=== PATIENT | female | born 1960 | race Caucasian/White ===

== ENCOUNTER 2018-11-25 08:13 | Outpatient (CLI) | payer BC, SELFPAY ==
[2018-11-25 09:40] LABS: BUN 14 mg/dL (7-18); CREATININE 0.98 mg/dL (0.55-1.02); Calcium 9.3 mg/dL (8.5-10.1); Calculated LDL 77 mg/dL; Chloride 108 mmol/L (98-107); Cholesterol 169 mg/dL (50-200); Estimated GFR 57.89 (mL/min/1.73m2); Glucose 95 mg/dL (70-100); HDL Cholesterol 41 mg/dL (40-60); Potassium 4.1 mmol/L (3.5-5.1); Sodium 145 mmol/L (136-145); Triglyceride 258 mg/dL (30-150)
== END 2018-11-25 08:33 ==
PROVIDERS: PCP Internal Medicine; Visit Provider Internal Medicine
DX: I10 Essential (primary) hypertension; R73.01 Impaired fasting glucose; E78.00 Pure hypercholesterolemia, unspecified
CPT/HCPCS: 36415; 80048; 80061; 83721

== ENCOUNTER 2020-03-01 02:46 | Outpatient (CLI) | payer BC, SELFPAY ==
[2020-03-01 09:55] LABS: Anion Gap 6.7 mmol/L (3-11); BUN 17 mg/dL (7-18); CO2 29.3 mmol/L (21.0-32.0); CREATININE 1.13 mg/dL (0.55-1.02); Calcium 9.3 mg/dL (8.5-10.1); Calculated LDL 88 mg/dL (<100); Chloride 107 mmol/L (98-107); Cholesterol 199 mg/dL (<200); Estimated GFR 48.95 (mL/min/1.73m2); Glucose 102 mg/dL (74-106); HDL Cholesterol 45 mg/dL (40-60); Potassium 4.4 mmol/L (3.5-5.1); Sodium 143 mmol/L (136-145); Triglyceride 332 mg/dL (<150)
== END 2020-03-01 03:06 ==
PROVIDERS: PCP Internal Medicine; Visit Provider Internal Medicine
DX: E78.00 Pure hypercholesterolemia, unspecified (principal); I10 Essential (primary) hypertension
CPT/HCPCS: 36415; 80048; 80061

== ENCOUNTER 2020-03-29 01:53 | Outpatient (CLI) | payer BC, SELFPAY ==
[2020-03-29 08:45] LABS: Bilirubin Negative (Negative); Blood Moderate (Negative); Clarity Clear (Clear); Glucose Negative (Negative); Ketones Negative (Negative); Leukocyte Esterase Negative (Negative); Nitrite Negative (Negative); Specific Gravity >= 1.030 (1.005-1.025); Urobilinogen 0.2 EU/dL (Up TO 0.2)
[2020-03-29 09:31] LABS: Anion Gap 8.1 mmol/L (3-11); BUN 20 mg/dL (7-18); CO2 28.9 mmol/L (21.0-32.0); CREATININE 1.15 mg/dL (0.55-1.02); Calcium 9.3 mg/dL (8.5-10.1); Chloride 106 mmol/L (98-107); Estimated GFR 47.97 (mL/min/1.73m2); Glucose 103 mg/dL (74-106); Potassium 4.3 mmol/L (3.5-5.1); Sodium 143 mmol/L (136-145)
[2020-03-29 10:13] LABS: Bacteria Moderate HPF (Negative); C & S Indicated? No/Sq. Contamination; Casts Negative LPF (Negative); Crystals Negative HPF (Negative); Epithelial Cells Many HPF (Negative); Mucus Heavy (Negative); RBC >50 HPF (0-2)
== END 2020-03-29 02:13 ==
PROVIDERS: PCP Internal Medicine; Visit Provider Internal Medicine
DX: N18.9 Chronic kidney disease, unspecified (principal); R82.998 Other abnormal findings in urine
CPT/HCPCS: 36415; 80048; 81003; 81015

== ENCOUNTER 2020-04-22 00:48 | Outpatient (CLI) | payer BC, SELFPAY ==
--- NOTE | 2020-04-22 15:19 | DI.MAMMO_ITS ---
EXAM: MG MAMMO SCREENING CLINICAL HISTORY: screening,Z12.39. TECHNIQUE: Bilateral full field digital CC and MLO mammographic images were obtained with 3D tomosyn thesis and utilizing computer aided detection (CAD). COMPARISON: Prior mammograms dating back to 2010, the most recent being February 2017. Patient unde rwent bilateral breast reduction surgery in 2018 FINDINGS: There is some architectural distortion now evident from the interval reduction surgery. In the right breast there is a nodular density located posteriorly measuring 3 x 3 millimeters, locat ed 9 centimetres in from the nipple. Spot compression view recommended. In the left breast there are 2 new microcalcification groups. One is located posteriorly up against the chest wall and the other approximately 7 centimetres in from the nipple. Spot Mag views recommen ded. No new significant skin thickening. IMPRESSION: Compared to 2017 there has been interval bilateral reduction surgery. There are new microcalcificati ons in the left breast which may or may not be related to fat necrosis or more concerning pathology a nd there is also a small nodular density noted posteriorly in the opposite-right breast. Additional Mag views of the left breast recommended as well as additional spot compression view of the right nicole ast and possibly right breast ultrasound BI-RADS Category 0 - Assessment Incomplete: Need additional imaging evaluation Breast Density - Category B - Scattered areas of fibroglandular density Breast density Category C or D implies that the patient has dense breast tissue. Dense breast tissue can make it harder to find cancer on a mammogram. Dense breast tissue is also associated with an incr eased risk of breast cancer. This information about the result of the mammogram report was provided to the patient to raise their awareness. Use this report when you speak with the patient about their risks for breast cancer, which includes their family history. At that time, you may recommend additional screening tests (Ultrasoun d or MRI) as these tests may add significant information. A negative radiographic report should not delay biopsy if a dominant or clinically suspicious mass is present. Up to ten percent of cancers are not identified on mammography. A negative report may reinforce clinical impression. Adenosis and dense breasts may obscure an underlying neoplasm. False positive reports average 6 to 10%. Patient will receive a letter notifying them of these results.
== END 2020-04-22 01:08 ==
PROVIDERS: PCP Internal Medicine; Visit Provider Internal Medicine
DX: Z12.31 Encounter for screening mammogram for malignant neoplasm of breast (principal); R92.8 Other abnormal and inconclusive findings on diagnostic imaging of breast
CPT/HCPCS: 77063; 77067

== ENCOUNTER 2020-05-04 00:49 | Outpatient (CLI) | payer BC, SELFPAY ==
--- NOTE | 2020-05-04 | DI.US_ITS ---
EXAM: MG MAMMO SCREEN CALL BACK BI and bilateral U/S breast limited CLINICAL HISTORY: F/U MAMMO, RT BREAST NODULAR DENSITY, NEW LT MICROCALCIFICATIONS. TECHNIQUE: Craniocaudal and mediolateral oblique Full Field Digital Mammography views of the bilater al breast with Computer Aided Diagnosis followed by Tomosynthesis and bilateral breast ultrasound. COMPARISON: Comparison is made with prior examinations. FINDINGS: Mammography/Tomosynthesis: Since the prior mammogram of 2017 the patient has undergone a bilateral br east reduction. Masses/Architectural Distortion: None seen. The nodular density in the outer right breast does not pe rsist on the additional views. Microcalcifictions: No suspicious pleomorphic-type are seen. The grouping of calcifications is again seen in the outer left breast. No definite suspicious pleomorphism is identified. Skin Thickening/Nipple Retraction: None. Bilateral breast US: Echotexture: Normal appearance of the glandular tissue. Shadowing: No suspicious foci. Cyst: None. Solid lesions: None seen. Ductal dilation: None. IMPRESSION: 1. No definite evidence of malignancy is noted. 2. A six-month follow-up bilateral mammogram is recommended for re-evaluation. 3. The findings were discussed with the patient on the date of the examination. BI-RADS Category 3 - 6 month - Probably Benign Finding: Recommend follow-up mammography in 6 months Breast Density - Category B - Scattered areas of fibroglandular density A negative radiographic report should not delay biopsy if a dominant or clinically suspicious mass is present. Up to ten percent of cancers are not identified on mammography. A negative report may reinforce clinical impression. Adenosis and dense breasts may obscure an underlying neoplasm. False positive reports average 6 to 10%. Patient will receive a letter notifying them of these results.
== END 2020-05-04 01:09 ==
PROVIDERS: PCP Internal Medicine; Visit Provider Internal Medicine
DX: R92.0 Mammographic microcalcification found on diagnostic imaging of breast (principal); R92.2 Inconclusive mammogram
CPT/HCPCS: 76642; 77063; 77067

== ENCOUNTER 2020-06-25 08:09 | Day surgery (SDC) | payer BC, SELFPAY ==
[2020-06-25] MEDS: Lactated Ringers 1,000 ML 80 ML IV (08:44)
[2020-06-25 08:45] VITALS: BP 116/66; PULSE 57; RESP 16; TEMP 35.8; O2SAT 98
--- NOTE | 2020-06-25 09:18 | BOWEL_PTH ---
PATIENT: Radha Wilkins LOC: [facility] U#:[id number] AGE/SX: 59/F ROOM: RE06/25/[address]: Salima Crabtree : 1960 BED: DIS: 06/25/2020 SPEC #: [id number] RECD: 06/25/20 12:31 STATUS: [facility] REQ #: [id number] ESTRELLITA: 06/25/20 09:[address]: Salima Crabtree DEPT: Surgical Specimen RECD BY: Lisa Vo ENTERED: 06/25/20 12:33 SP TYPE: Bowel OTHR DR: Ivy Ruffin MD Tissues: 1 - BIOPSY BOWEL Procedures: GROSS AND MICRO LEVEL 4 Comments: [id number]
--- NOTE | 2020-06-25 09:43 | W.COLOREPORT ---
Date of service: 06/25/20 Time of Service: 09:43 Colonoscopy Report Date of procedure: 06/25/20 Pre-op diagnosis general: screening Post-op diagnosis procedure note: other (polypectomy- hot snare ) Anesthesia proc note operative: GETA Pathology: other Disposition: no change Prep: Miralax/Dulcolax Retraction Time: 15 mins Procedure Description: After informed consent was obtained the patient was taken to the procedure room and placed in a left decubitous position. Monitors were applied and a time out was done. The patients name, date of , procedure, allergies to medications and metal in their body was reviewed. The patient was then sedated. Once sedated and comfortable a rectal exam was done. External hemorrhoids that are not inflamed. Internal exam revealed a normal sphincter tone and no palpable masses. The scope was then introduced and retrofelexed. no internal hemorrhoids were identified. The scope was then advanced to the cecum w/out difficulty. The TI and appendiceal orifice were identified. The prep was good. The scope was then slowly retracted over 15 minutes back into the rectum. She had a large pedunculated polyp at 80 cm. This is at least 1.5 cm. It is removed in a hot snare in 1 piece. It is retrieved. There is no bleeding noted. There are no other polyps diverticula or AVMs throughout the colon. The scope was removed and the patient was woken up and taken back to Same day surgery in stable condition. The patient tolerated the procedure well and there were no immediate complications. Follow up: The patient should follow up in 3 years unless they develop changes in bowel habits or other new gastrointestinal complaints.
--- NOTE | 2020-06-25 09:46 | W.PM.DSUDISC ---
Discharge Plan Disposition Patient Disposition: HOME Condition: Good Discharge Details Attending Provider: Salima Crabtree Primary Care Provider: Ivy Ruffin Home Meds and New Rx's Prescriptions: No Action cholecalciferol (vitamin D3) 5,000 unit capsule 5,000 unit PO DAILY RF: 0 atenolol 25 mg tablet 25 mg PO DAILY Qty: 90 RF: 3 atorvastatin 20 mg tablet 20 mg PO DAILY Qty: 90 RF: 3 bupropion HCl (smoking deter) 150 mg tablet extended release 12 hr 150 mg PO DAILY Qty: 90 RF: 3 acetaminophen 325 MG tablet 650 mg PO Q4H PRN RF: 0 calcium carbonate-vitamin D3 [Calcium 500 With D] 1 EACH tablet 1 ea PO HS RF: 0 multivitamin [Daily Multi-Vitamin] 1 EACH tablet 1 ea PO DAILY Qty: 365 RF: 0 Discharge Instructions Additional Instructions: Findings: Lg polyp -No ASA/NSAID's for 5 days. -no strenuous activity or lifting over 20#'s for 72 hrs. Follow up: repeat in 3 yrs Please call if you develop: fevers >101.5 Nausea or Vomiting Abdominal pain that is not transient DAY SURGERY UNIT POST COLONOSCOPY INSTRUCTIONS 1. Because there will be medication in your system for the next 24 hours, you may feel a little sleepy. Your coordination will be affected. Therefore: a. Do not drive or operate dangerous equipment for 24 hours. b. Do not drink alcohol beverages for 24 hours (not even beer). c. Plan to go home and rest for the day. 2. Generally there are no restrictions on your activity after a day or so has gone by, but you may feel a bit fatigued for a few days. 3 After you arrive home you may have a light meal and return to a normal diet as you can tolerate it without feeling sick to your stomach. 4. After surgery, you may feel pain or discomfort. This should be only transient, but if it persists please contact your doctor. 5. If there are any questions regarding the findings of your procedure, please feel free to contact your doctor. 6. If you are unable to contact your doctor with a problem, contact the hospital at [phone]. 7. Continue all your regular medications unless directed otherwise. I understand the above instructions and have no questions. Signature of Patient or Responsible Adult Escort Date/Time Name of Responsible Adult Escort Signature of Nurse Date/Time Activity:: No lifting over 20 pounds or strenuous activity x72 hours. Diet:: Small light meals x24 hours. Discharge Orders Discharge Orders: Discharge Order (Routine); Ordered 06/24/20 Ordered By: Salima Crabtree DS: Diagnosis Discharge Diagnosis (1) Adenomatous colon polyp: Status: Acute
[2020-06-25 10:02] VITALS: BP 111/73; PULSE 51; RESP 16; TEMP 36.4; O2SAT 98
[2020-06-25 10:20] VITALS: BP 126/86; PULSE 55; RESP 16; TEMP 36.1; O2SAT 98
== END 2020-06-25 10:53 | disposition home or self-care (01) ==
PROVIDERS: PCP Internal Medicine; Visit Provider Surgery
PROC: 0DJD8ZZ Inspection of Lower Intestinal Tract, Via Natural or Artificial Opening Endoscopic (ICD-10-PCS; CPT 45378; principal; 2020-06-25 09:00)
DX: Z12.11 Encounter for screening for malignant neoplasm of colon (principal); D12.4 Benign neoplasm of descending colon
CPT/HCPCS: 45385; 88305

== ENCOUNTER 2020-11-04 01:16 | Outpatient (CLI) | payer BC, SELFPAY ==
--- NOTE | 2020-11-04 07:30 | DI.MAMMO_ITS ---
Exam(s) MAMMO DIAGNOSTIC BI EXAM: MAMMO DIAGNOSTIC BI CLINICAL HISTORY: 6 MONTH FOLLOW UP, DIAGNOSTIC, Z98.890,H/O REDUCTION MAMMOPLASTY. TECHNIQUE: Unilateral spot mammographic images were obtained with 3D Tomosynthesistechnique and util izing computer aided detection (CAD). COMPARISON: Prior mammograms dating back to 2011, the most recent being April 2020. This patient underwent previous bilateral reduction surgery FINDINGS: No new significant radiograph findings in the right breast. In the left breast the more anterior of the 2 microcalcification groups has almost completely disappe ared. The more posterior microcalcification group up again to chest wall is unchanged. There are no new spiculated masses. No new architectural distortion nor skin thickening-retraction. IMPRESSION: Stable benign findings. No radiographic evidence of malignancy. Appropriate follow-up is to keep this patient yearly mammogram schedule, this implying the next [facility] mammogram would be in April 2021, with earlier imaging if a self detected breast changes noted .. The patient was informed of the findings and follow-up recommendations prior to leaving the [facility] today. BI-RADS Category 2 - Benign Findings Breast Density - Category B - Scattered areas of fibroglandular density Breast density Category C or D implies that the patient has dense breast tissue. Dense breast tissue can make it harder to find cancer on a mammogram. Dense breast tissue is also associated with an incr eased risk of breast cancer. This information about the result of the mammogram report was provided to the patient to raise their awareness. Use this report when you speak with the patient about their risks for breast cancer, which includes their family history. At that time, you may recommend additional screening tests (Ultrasoun d or MRI) as these tests may add significant information. A negative radiographic report should not delay biopsy if a dominant or clinically suspicious mass is present. Up to ten percent of cancers are not identified on mammography. A negative report may reinforce clinical impression. Adenosis and dense breasts may obscure an underlying neoplasm. False positive reports average 6 to 10%. Patient will receive a letter notifying them of these results.
== END 2020-11-04 01:36 ==
PROVIDERS: PCP Internal Medicine; Visit Provider Internal Medicine
DX: R92.8 Other abnormal and inconclusive findings on diagnostic imaging of breast (principal); Z98.890 Other specified postprocedural states
CPT/HCPCS: 77062; 77066; G0279

== ENCOUNTER 2021-02-16 20:15 | Outpatient (REF) | payer BC, SELFPAY ==
[2021-02-16 21:07] LABS: Anion Gap 8.4 mmol/L (3-11); BUN 20 mg/dL (7-18); CO2 29.6 mmol/L (21.0-32.0); Calcium 9.6 mg/dL (8.5-10.1); Calculated LDL 95 mg/dL (<100); Chloride 105 mmol/L (98-107); Cholesterol 175 mg/dL (<200); Estimated GFR 56.18 (mL/min/1.73m2); Glucose 105 mg/dL (74-106); HDL Cholesterol 45 mg/dL (40-60); Potassium 4.7 mmol/L (3.5-5.1); Sodium 143 mmol/L (136-145); Triglyceride 178 mg/dL (<150)
== END 2021-02-16 20:16 | disposition home or self-care (01) ==
LOC: LBN 20:15
PROVIDERS: PCP Internal Medicine; Visit Provider Internal Medicine
DX: I10 Essential (primary) hypertension (principal); E78.00 Pure hypercholesterolemia, unspecified
CPT/HCPCS: 80048; 80061

== ENCOUNTER 2021-10-11 11:24 | Day surgery (SDC) | payer BC, SELFPAY ==
--- NOTE | 2021-10-10 15:40 | PDOC.DSDIS_ITS ---
Discharge Plan Disposition Patient Disposition: HOME Condition: Good Discharge Details Reason For Visit: Colon scope Attending Provider: Salima Crabtree Primary Care Provider: Ivy Ruffin Home Meds and New Rx's Prescriptions: Continued cholecalciferol (vitamin D3) 5,000 unit capsule 5,000 unit PO DAILY bupropion HCl 150 mg tablet extended release 24 hr 150 mg PO QAM Qty: 90 3RF acetaminophen 325 MG tablet 650 mg PO Q4H PRN Label Comments: from [facility] [place] calcium carbonate-vitamin D3 [Calcium 500 With D] 1 EACH tablet 1 ea PO HS Label Comments: takes at night multivitamin [Daily Multi-Vitamin] 1 EACH tablet 1 ea PO DAILY Qty: 365 Label Comments: Since not feeling well has not taken -- it's been about a week. atenolol 25 mg tablet 25 mg PO DAILY Qty: 90 3RF atorvastatin 20 mg tablet 20 mg PO DAILY Qty: 90 3RF Discontinued bisacodyl [Dulcolax (bisacodyl)] 5 mg tablet,delayed release (DR/EC) 5 mg PO ONCE Qty: 4 0RF Rx Instructions: Take according to provider's instructions for colonoscopy prep. polyethylene glycol 3350 17 gram/dose powder 17 g PO ONCE Qty: 238 0RF Rx Instructions: To be taken as directed by prescriber's office for colonoscopy prep. No Action diphenhydramine-acetaminophen [Tylenol PM Extra Strength] 25-500 mg Tablet 1 tab PO QHS Discharge Instructions Additional Instructions: DSU Colonoscopy Post- Op Instructions Instructions for Everyone who is given Anesthesia: For your safety, please do the following for the next twenty-four (24) hours: *Do Not operate a motor vehicle (car, truck, motorcycle, etc.) *Do Not drink alcoholic beverages or use any recreational drugs for the first 24 hours or while taking pain medications. The medications in your body may have a reaction that can be dangerous. *Do Not make any important decisions or sign any important papers. Findings: normal Follow up: 5 yrs 1. No lifting over 20 pounds or strenuous activity for the first 24 hours after your procedure. After 24 hours there are no restrictions on your activity but you may feel fatigued for a few days. 2. After you arrive home you may have a light meal and return to your normal diet as you can tolerate it without feeling sick to your stomach. 3. You may have a bloated, gaseous feeling in your belly (abdomen) after a colonoscopy. Passing gas and belching will help. Walking or lying down on your left side with your knees flexed may relieve the discomfort. Call the office at [phone] (Office) or [phone] (Hospital) right away if you notice any of the following: a.Vomiting of blood or ?coffee ground stools?. b.Rectal bleeding 1Tbsp, blood clots or continuous bleeding. c.Severe belly (abdominal) pain. d.A hard distended belly (abdomen) and an inability to pass gas. 4. Please don?t expect to have a normal BM (bowel movement) for 2-3 days after your procedure. 5. If there are questions regarding the findings of your procedure, please contact your doctor 6. If you are unable to contact your doctor with a problem, contact the hospital at [phone]. 7. Continue all your regular medications unless directed otherwise. I understand the above instructions and have no questions. Signature of Patient or Adult Escort Name of Responsible Adult Escort Signature of Nurse Date/Time Stand Alone Forms: Anesthesia Discharge Inst., Christine Graf (DSU) Activity:: See above Diet:: See above Discharge Orders Discharge Orders: Discharge Order (Routine); Ordered 10/10/21 Ordered By: Salima Crabtree
--- NOTE | 2021-10-10 15:41 | W.COLOREPORT ---
Colonoscopy Report Date of procedure: 10/11/21 Pre-op diagnosis general: Villous @ 80cm Post-op diagnosis procedure note: other (normal/repeat in 3 yrs) Surgeon: Salima Crabtree Anesthesia Type: General:No Airway Pathology: none sent Complications: None Disposition: same day Prep: Miralax/Dulcolax Retraction Time: 9 Procedure Description: After informed consent was obtained the patient was taken to the procedure room and placed in a left decubitous position. Monitors were applied and a time out was done. The patients name, date of , procedure, allergies to medications and metal in their body was reviewed. The patient was then sedated. Once sedated and comfortable a rectal exam was done. External exam was normal. Internal exam revealed a normal sphincter tone and no palpable masses. The scope was then introduced and retrofelexed. no internal hemorrhoids were identified. The scope was then advanced to the cecum without difficulty. The TI and appendiceal orifice were identified. The prep was BB PS 3 in all segments for a total of 9. The scope was then slowly retracted over 9 minutes back into the rectum. there are no polyps/AVMs/diverticula visualized today.. The scope was removed and the patient was woken up and taken back to Same day surgery in stable condition. The patient tolerated the procedure well and there were no immediate complications. Follow up: The patient should follow up in 3 years unless they develop changes in bowel habits or other new gastrointestinal complaints.
[2021-10-11 11:40] VITALS: BP 130/81; PULSE 53; RESP 18; TEMP 36.1; O2SAT 98
[2021-10-11] MEDS: Lactated Ringers 1,000 ML 80 ML IV (12:06)
--- NOTE | 2021-10-11 12:12 | ANES.PREOP_ITS ---
General Info Date of Service Date Performed: 10/11/21 Height: 5 ft 4 in Weight: 79.549 kg Body Mass Index (BMI): 30.1 Surgical Procedure: Operation Date: 10/11/21 10:50 Proposed Procedure Side Surgeon p Colonoscopy Salima Crabtree, DO Actual Procedure Side Surgeon p Colonoscopy Salima Crabtree, DO Meds Allergies and Home Medications Allergies Allergy/AdvReac Type Severity Reaction Status Date / Time No Known Drug Allergies Allergy Verified 10/11/21 11:49 Home Medication Medication Instructions Recorded acetaminophen 325 mg tablet 650 mg PO Q4H PRN 06/17/13 calcium carbonate 500 mg-vitamin 1 ea PO HS 10/01/13 D3 10 mcg (400 unit) tablet (Calcium 500 With D) multivitamin (Daily Multi-Vitamin 1 ea PO DAILY ##365 01/06/14 tablet) cholecalciferol (vitamin D3) 125 5,000 unit PO DAILY 09/25/18 mcg (5,000 unit) capsule atenolol 25 mg tablet 25 mg PO DAILY #90 tabs 10/19/20 bupropion HCl 150 mg 24 hr tablet, 150 mg PO QAM #90 tabs 08/17/21 extended release atorvastatin 20 mg tablet 20 mg PO DAILY #90 tabs 10/03/21 diphenhydramine 25 1 tab PO QHS 10/11/21 mg-acetaminophen 500 mg tablet (Tylenol PM Extra Strength) Current Visit Medications: Current Medications Generic Name Dose Route Start Last Admin Trade Name Freq PRN Reason Stop Dose Admin Hyoscyamine Sulfate 0.125 mg 10/11/21 06:00 Hyoscyamine 0.125 Mg Sl/Oral/Chew SL 10/11/21 23:59 DIRECTED PRN Ringer's Solution 1,000 mls @ 80 mls/hr 10/11/21 06:00 10/11/21 12:06 IV 11/09/21 23:59 80 mls/hr INFUSION SANKET Administration IV Miscellaneous Supplies 1 each 10/11/21 06:00 Iv Access IV 11/09/21 23:59 DIRECTED SANKET Ondansetron HCl 4 mg 10/11/21 06:00 Ondansetron 4 Mg/2 Ml Vial IVP 10/11/21 23:59 Q4H PRN PRN Nausea / Vomiting Ondansetron HCl 4 mg 10/11/21 06:00 Ondansetron 4 Mg/2 Ml Vial IVP 10/11/21 23:59 Q4H PRN PRN Nausea / Vomiting Sodium Chloride 0 ml 10/11/21 06:00 Normal Saline Flush 10 Ml Syr IV 11/09/21 23:59 PRN PRN Sodium Chloride 0 ml 10/11/21 06:00 Normal Saline 10 Ml Vial IJ 11/09/21 23:59 DIRECTED PRN Sterile Water 0 ml 10/11/21 06:00 Water,Injection,Sterile 10 Ml Vial IJ 11/09/21 23:59 DIRECTED PRN PFSH Active Problems Active Problems: Problem Status Onset Code Sessile colonic polyp K63.5 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 Adenomatous colon polyp D12.6 Irritable bowel 08/04/14 K58.9 Medical History Medical History Arthralgia of hands, bilateral Chronic kidney disease (CKD) Complex tear of lateral meniscus of left knee (02/07/21) Depressive disorder (09/06/12) Essential hypertension (03/27/12) Impaired fasting glucose (08/04/14) Microscopic hematuria (03/27/12) Patellofemoral syndrome, left (02/07/21) Plantar fasciitis of left foot Pure hypercholesterolemia (03/27/12) Seasonal affective disorder (01/21/13) Tear of medial meniscus of left knee (02/07/21) Tremor Surgical History Surgical History Appendectomy Cholecystectomy EGD - IV Sedation (01/30/02) H/O reduction mammoplasty 02/15/18 bilateral breast reduction at [facility] (Dr Glenn Dominguez) History of colonoscopy with polypectomy (~06/25/20) hysterectomy (04/16/95) Tubal Ligation, Laparoscopic Tobacco Smoking/Tobacco Use Status: Never Alcohol Alcohol Intake: current Alcohol intake frequency: holidays/special occasions only Alcohol type: wine Substance Use Substance use: Never Substance use type: does not use Vital Signs and Lab Results Vital Signs Most Recent Vital Signs in EMR: Most Recent Vital Signs Temp Pulse Resp BP Pulse Ox 36.1 C L 53 L 18 130/81 98 10/11/21 11:40 10/11/21 11:40 10/11/21 11:40 10/11/21 11:40 10/11/21 11:40 Lab Results Blood Type / Crossmatch: No Data to Display Complete Blood Count: No Data to Display Complete Metabolic Panel: No Data to Display Liver Function Panel: No Data to Display Coagulation Panel: No Data to Display Cardiac Panel: No Data to Display Arterial Blood Gas: No Data to Display Venous Blood Gas: No Data to Display Pancreas Panel: No Data to Display Thyroid Panel: No Data to Display Infectious Disease: No Data to Display Blood Cultures: No Data to Display Toxicology Panel: No Data to Display Anesthesia Assessment and Plan Anesthesia History Personal History: No History of Anesthesia Complications Family History: No Family History of Anesthesia Complications Exercise Tolerance Exercise Tolerance: Metabolic Equivalents>4 Pertinent Negatives Pertinent Negatives: No Symptoms of GERD, No Major Cardiovascular Symptoms or Complaints, No Major Pulmonary Symptoms or Complaints and No History of CVA/TIA Cardiac & Pulmonary Exam Cardiac Exam: Normal S1/S2 Heart Sounds Pulmonary Exam: Clear Bilateral Breath Sounds Implantable Cardiac Device Does patient have a Pacemaker or an ICD?: No Airway Exam Known Difficult Airway: No Mallampati Class: 1 Mouth Opening: Normal (> 3cm) Thyromental Distance: Greater than 3 cm Neck Range of Motion: Full ROM Neck Circumference: Normal Teeth Condition: Normal Dentition Airway Comments: [place] torus ASA Classification ASA Score: ASA 2 Emergency Case?: No NPO Status NPO Status: NPO Clears >2 hours, Solids >8 hours Anesthesia Plan Resuscitation Status: Full Code Anesthesia Technique: General Anesthesia Airway Planned: Natural Airway Monitors Used: Standard Monitors
[2021-10-11 12:14] VITALS: BMI 30.1
[2021-10-11 12:39] VITALS: BP 95/72; PULSE 61; RESP 20; TEMP 36.2; O2SAT 96
--- NOTE | 2021-10-11 12:42 | W.ANESPOSTOP ---
Postoperative Evaluation Date, Time and Location Date Performed: 10/11/21 Time Performed: 12:42 Patient Location: Day Surgery Unit Vital Signs Most Recent Imported Vital Signs: Most Recent Vital Signs Temp Pulse Resp BP Pulse Ox 36.1 C L 53 L 18 130/81 98 10/11/21 11:40 10/11/21 11:40 10/11/21 11:40 10/11/21 11:40 10/11/21 11:40 Most Recent Manually Entered Vital Signs: Adult Blood Pressure: 95/72 Heart Rate: 59 Respirations: 12 Oxygen Saturation (%): 96 Temperature (C): 36.3 C Pain Score (0-10 Scale): 0 Pain Score Most Recent Pain Score: Most Recent Pain Score Pain Level 0 10/11/21 11:40 Assessment Mental Status: Awake (Alert & Oriented to Patient Baseline) Airway and Respiratory Function: Patent airway with normal (patient baseline) respiratory exam Cardiovascular Function: Hemodynamically Stable Hydration Status: Adequately Hydrated Nausea & Vomiting: No Nausea or Vomiting Pain: Pt. Denies Any Pain Peripheral Nerve Block: Patient did not receive a nerve block
[2021-10-11 12:43] VITALS: BP 95/72; PULSE 59; RESP 12; TEMPC 36.3; O2SAT 96
[2021-10-11 13:07] VITALS: BP 132/91; PULSE 54; RESP 18; TEMP 36.5; O2SAT 97
== END 2021-10-11 13:25 | disposition home or self-care (01) ==
LOC: SUR 11:24
PROVIDERS: PCP Internal Medicine; Visit Provider Surgery
PROC: 0DJD8ZZ Inspection of Lower Intestinal Tract, Via Natural or Artificial Opening Endoscopic (ICD-10-PCS; CPT 45378; principal; 2021-10-11 10:45)
DX: Z12.11 Encounter for screening for malignant neoplasm of colon (principal); Z86.010 Personal history of colon polyps; I12.9 Hypertensive chronic kidney disease with stage 1 through stage 4 chronic kidney disease, or unspecified chronic kidney disease; N18.9 Chronic kidney disease, unspecified; K58.9 Irritable bowel syndrome, unspecified
CPT/HCPCS: 45378

== ENCOUNTER 2022-02-08 03:20 | Outpatient (CLI) | payer BC, SELFPAY ==
[2022-02-08 11:48] LABS: Anion Gap 4.1 mmol/L (3-11); BUN 13 mg/dL (7-18); CO2 30.9 mmol/L (21.0-32.0); CREATININE 1.1 mg/dL (0.55-1.02); Calcium 9.7 mg/dL (8.5-10.1); Calculated LDL 73 mg/dL (<100); Chloride 104 mmol/L (98-107); Cholesterol 164 mg/dL (<200); Estimated GFR 56.46 (mL/min/1.73m2); Glucose 122 mg/dL (74-106); HDL Cholesterol 53 mg/dL (40-60); Potassium 4.2 mmol/L (3.5-5.1); Sodium 139 mmol/L (136-145); Triglyceride 191 mg/dL (<150)
== END 2022-02-08 03:21 | disposition home or self-care (01) ==
LOC: LBO 03:20
PROVIDERS: PCP Internal Medicine; Visit Provider Internal Medicine
DX: E78.00 Pure hypercholesterolemia, unspecified (principal); I10 Essential (primary) hypertension
CPT/HCPCS: 36415; 80048; 80061

== ENCOUNTER 2022-08-16 02:34 | Outpatient (CLI) | payer BC, SELFPAY ==
[2022-08-16 11:09] LABS: Anion Gap 6.5 mmol/L (3-11); BUN 17 mg/dL (7-18); CO2 30.5 mmol/L (21.0-32.0); CREATININE 1.1 mg/dL (0.55-1.02); Calcium 9.5 mg/dL (8.5-10.1); Chloride 106 mmol/L (98-107); Estimated GFR 56.46 (mL/min/1.73m2); Glucose 96 mg/dL (74-106); Potassium 4.3 mmol/L (3.5-5.1); Sodium 143 mmol/L (136-145)
== END 2022-08-16 02:35 | disposition home or self-care (01) ==
PROVIDERS: PCP Nurse Practitioner Adult Health; Visit Provider Nurse Practitioner Adult Health
DX: I10 Essential (primary) hypertension (principal); R79.89 Other specified abnormal findings of blood chemistry
CPT/HCPCS: 36415; 80048

== ENCOUNTER 2022-09-20 01:00 | Outpatient (CLI) | payer BC, SELFPAY ==
--- NOTE | 2022-09-20 08:00 | DI.MAMMO_ITS ---
Exam(s) MAMMO SCREENING EXAM: MAMMO SCREENING CLINICAL HISTORY: screening, Z12.39 TECHNIQUE: Bilateral full field digital CC and MLO mammographic images were obtained with 3D tomosyn thesis and utilizing computer aided detection (CAD). COMPARISON: Available for comparison. FINDINGS: The patient is status post bilateral breast reduction. Masses/Architectural Distortion: None seen. Microcalcifications: No suspicious pleomorphic-type are seen. Skin Thickening/Nipple Retraction: None. IMPRESSION: 1. No significant interval change with no specific features of malignancy noted. 2. Unless there is more urgent need, screening mammography is recommended, as per [employer] guidelines. BI-RADS Category 1 - Negative Breast Density - Category B - Scattered areas of fibroglandular density Breast density category C or D implies that the patient has dense breast tissue. Dense breast tissue is very common and is not abnormal but dense breast tissue can make it harder to find cancer on a ma mmogram. Also, dense breast tissue may increase their breast cancer risk. This information about the result of the mammogram report was provided to the patient to raise their awareness. Use this report when you speak with the patient about their risks for breast cancer, which includes their family hist ory. At that time, you may recommend for more screening tests (Ultrasound or MRI) as they might be us eful based on their risk. A negative radiographic report should not delay biopsy if a dominant or clinically suspicious mass is present. Up to ten percent of cancers are not identified on mammography. A negative report may reinforce clinical impression. Adenosis and dense breasts may obscure an underlying neoplasm. False positive reports average 6 to 10%. Patient will receive a letter notifying them of these results.
== END 2022-09-20 01:20 ==
LOC: DI 01:43
PROVIDERS: PCP Nurse Practitioner Adult Health; Visit Provider Nurse Practitioner Adult Health
DX: Z12.31 Encounter for screening mammogram for malignant neoplasm of breast (principal)
CPT/HCPCS: 77063; 77067

== ENCOUNTER 2023-09-21 05:15 | Outpatient (CLI) | payer BC, SELFPAY ==
[2023-09-21 10:29] LABS: Hemoglobin A1C 5.7 % (<5.7)
[2023-09-21 11:34] LABS: Anion Gap 8.4 mmol/L (3-11); BUN 13 mg/dL (7-18); CO2 29.6 mmol/L (21.0-32.0); Calcium 9.8 mg/dL (8.5-10.1); Calculated LDL 139 mg/dL (<100); Chloride 106 mmol/L (98-107); Cholesterol 239 mg/dL (<200); Estimated GFR 62.52 (mL/min/1.73m2); Glucose 104 mg/dL (74-106); HDL Cholesterol 41 mg/dL (40-60); Potassium 4.3 mmol/L (3.5-5.1); Sodium 144 mmol/L (136-145); Triglyceride 297 mg/dL (<150)
== END 2023-09-21 05:16 | disposition home or self-care (01) ==
LOC: LBO 05:15
PROVIDERS: PCP Nurse Practitioner Adult Health; Visit Provider Nurse Practitioner Adult Health
DX: E78.00 Pure hypercholesterolemia, unspecified (principal); I10 Essential (primary) hypertension; R73.01 Impaired fasting glucose; N18.9 Chronic kidney disease, unspecified
CPT/HCPCS: 36415; 80048; 80061; 83036

== ENCOUNTER 2023-09-26 10:49 | Outpatient (CLI) | payer BC, SELFPAY ==
[2023-09-26 10:58] LABS: Absolute Basophil Count 0.03 10^3/uL (0.0-0.2); Absolute Eosinophil Count 0.26 10^3/uL (0.0-0.7); Absolute Lymphocyte Count 1.89 10^3/uL (1.2-3.4); Absolute Monocyte Count 0.34 10^3/uL (0.1-0.8); Absolute Neutrophil Count 2.78 10^3/uL (1.2-6.7); Basophils % 0.6 %; Eosinophils % 4.9 %; HCT 39.5 % (36.0-46.0); HGB 13.4 g/dL (11.2-15.7); Lymphocytes % 35.7 %; MCH 30.8 pg (27.0-33.0); MCHC 33.9 % (32.0-36.0); MCV 91 fL (80-95); MPV 11.5 fL (8.0-11.0); Monocytes % 6.4 %; Neutrophils % 52.4 %; Platelet Count 159 10^3/uL (130-400); RBC 4.35 10^6/uL (3.93-5.22); RDW 11.9 % (11.7-14.6); RDW-SD 39.4 fL
[2023-09-26 11:36] LABS: Amylase 45 U/L (25-115)
[2023-09-26 11:37] LABS: ALT 40 U/L (14-59); AST 26 U/L (15-37); Albumin 3.9 g/dL (3.4-5.0); Alkaline Phosphatase 89 U/L (46-116); Anion Gap 8.2 mmol/L (3-11); BUN 12 mg/dL (7-18); Bilirubin, Direct 0.3 mg/dL (0.0-0.2); Bilirubin, Total 1.9 mg/dL (0.2-1.0); CO2 28.8 mmol/L (21.0-32.0); Calcium 9.5 mg/dL (8.5-10.1); Chloride 106 mmol/L (98-107); Estimated GFR 62.52 (mL/min/1.73m2); Glucose 97 mg/dL (74-106); Lipase 36 U/L (16-77); Sodium 143 mmol/L (136-145); Total Protein 6.8 g/dL (6.4-8.2)
[2023-09-26 11:38] LABS: C-Reactive Protein < 0.50 mg/dL (<or=0.5)
== END 2023-09-26 10:50 | disposition home or self-care (01) ==
LOC: LBO 10:51
PROVIDERS: PCP Nurse Practitioner Adult Health; Visit Provider Emergency Medicine
DX: K85.90 Acute pancreatitis without necrosis or infection, unspecified (principal)
CPT/HCPCS: 36415; 80053; 80076; 83690; 82150; 85025; 86140

== ENCOUNTER 2024-02-01 02:19 | Outpatient (CLI) | payer BC, MEDICARE, SELFPAY ==
[2024-02-06 15:42] LABS: Apolipoprotein B, Serum 152 mg/dL (48-124); Beta VLDL Cholesterol Not Detected mg/dL (<15); Beta VLDL Triglycerides Not Detected mg/dL (<15); Cholesterol, Total, CDC 267 mg/dL; Chylomicron Cholesterol Not Detected; Chylomicron Triglycerides Not Detected; HDL Cholesterol, CDC 45 mg/dL (>=50); LDL Cholesterol 164 mg/dL; LDL Triglycerides 75 mg/dL (<=50); Lp(a) Cholesterol <5 mg/dL (<5); LpX Not detected; Triglycerides, CDC 311 mg/dL; VLDL Cholesterol 58 mg/dL (<30); VLDL Triglycerides 206 mg/dL (<120)
== END 2024-02-01 02:20 | disposition home or self-care (01) ==
LOC: LBO 02:19
PROVIDERS: PCP Nurse Practitioner Adult Health; Visit Provider Nurse Practitioner Adult Health
DX: E78.00 Pure hypercholesterolemia, unspecified (principal)
CPT/HCPCS: 80061; 82172; 82664

== ENCOUNTER 2024-04-29 03:58 | Outpatient (CLI) | payer BC, MEDICARE, SELFPAY ==
[2024-05-02 17:27] LABS: Apolipoprotein B, Serum 82 mg/dL (48-124); Beta VLDL Cholesterol Not Detected mg/dL (<15); Beta VLDL Triglycerides Not Detected mg/dL (<15); Cholesterol, Total, CDC 166 mg/dL; Chylomicron Cholesterol Not Detected; Chylomicron Triglycerides Not Detected; HDL Cholesterol, CDC 47 mg/dL (>=50); LDL Cholesterol 91 mg/dL; LDL Triglycerides 43 mg/dL (<=50); Lp(a) Cholesterol <5 mg/dL (<5); LpX Not detected; Triglycerides, CDC 182 mg/dL; VLDL Cholesterol 28 mg/dL (<30); VLDL Triglycerides 114 mg/dL (<120)
== END 2024-04-29 03:59 | disposition home or self-care (01) ==
LOC: LBO 03:58
PROVIDERS: PCP Nurse Practitioner Adult Health; Visit Provider Nurse Practitioner Adult Health
DX: E78.2 Mixed hyperlipidemia (principal)
CPT/HCPCS: 36415; 80061; 82172; 82664

== ENCOUNTER 2024-07-21 01:59 | Outpatient (CLI) | payer BC, MEDICARE, SELFPAY ==
--- NOTE | 2024-07-21 08:00 | DI.MAMMO_ITS ---
Exam(s) MAMMO SCREENING EXAM: MAMMO SCREENING CLINICAL HISTORY: screening,z12.39 TECHNIQUE: Mammograms were interpreted according to the usual protocol including computer analysis w [employer] CAD system, tomosynthesis and C-view imaging. COMPARISON: 2014 through 2022 FINDINGS: The breasts are composed of scattered fibroglandular densities, Breast Density category B. No suspicious masses or suspicious microcalcifications are seen. No skin thickening or abnormal axillary lymph nodes are seen. There has been no significant change from prior exams. IMPRESSION: BI-RADS Category 1, Negative mammogram Yearly screening mammography is recommended. Breast Density - Category B, scattered fibroglandular densities. A negative radiographic report should not delay biopsy if a dominant or clinically suspicious mass is present. Up to ten percent of cancers are not identified on mammography. A negative report may reinforce clinical impression. Adenosis and dense breasts may obscure an underlying neoplasm. False positive reports average 6 to 10%. Patient will receive a letter notifying them of these results.
== END 2024-07-21 02:19 ==
PROVIDERS: PCP Nurse Practitioner Adult Health; Visit Provider Nurse Practitioner Adult Health
DX: Z12.31 Encounter for screening mammogram for malignant neoplasm of breast (principal); Z12.11 Encounter for screening for malignant neoplasm of colon; R92.323 Mammographic fibroglandular density, bilateral breasts
CPT/HCPCS: 77063; 77067

== ENCOUNTER 2024-09-22 08:19 | Day surgery (SDC) | payer BC, MEDICARE, SELFPAY ==
--- NOTE | 2024-09-21 09:37 | PDOC.DSDIS_ITS ---
Date of service: 09/22/24 Discharge Plan Disposition Patient Disposition: Home Condition: Good Discharge Details Reason For Visit: screening colonoscopy Attending Provider: Sumanth Hayward Primary Care Provider: Cate Alvarez Home Meds and New Rx's Prescriptions: Continued cholecalciferol (vitamin D3) 5,000 unit capsule 5,000 unit PO DAILY esomeprazole magnesium [Nexium] 40 mg capsule,delayed release(DR/EC) 40 mg PO DAILY Qty: 60 1RF Rx Instructions: Take daily in AM on empty stomach for 2 months, then every other day. rosuvastatin 10 mg tablet 10 mg PO DAILY MDD 10 mg 90 Days Qty: 90 4RF Rx Instructions: Take one 10 mg tablet by mouth once daily. icosapent ethyl [Vascepa] 1 gram capsule 2 g PO BID 90 Days Qty: 360 4RF Rx Instructions: Begin with 1 capsule by mouth AM or PM, add 1 capsule every 2-5d until 2 capsules AM and PM acetaminophen 325 MG tablet 650 mg PO Q4H PRN Patient Comments: [place] [facility] [place] carbonate-vitamin D3 [Calcium 500 With D] 1 EACH tablet 1 ea PO HS Patient Comments: takes at night multivitamin [Daily Multi-Vitamin] 1 EACH tablet 1 ea PO DAILY Qty: 365 Patient Comments: Since not feeling well has not taken -- it's been about a week. bupropion HCl 150 mg tablet extended release 24 hr See Rx Instructions .ROUTE .COMPLEX Qty: 90 3RF Dose Instruction: TAKE 1 TABLET EVERY MORNING Rx Instructions: TAKE 1 TABLET EVERY MORNING sucralfate [Carafate] 1 gram tablet 1 g PO .ac dinner PRN (Reason: stomach upset) Qty: 90 0RF Rx Instructions: Med trial diphenhydramine-acetaminophen [Tylenol PM Extra Strength] 25-500 mg tablet 1 tab PO QHS PRN Discontinued polyethylene glycol 3350 17 gram/dose powder 238 g PO ONCE Qty: 238 0RF Rx Instructions: take per colonoscopy instructions bisacodyl [Dulcolax (bisacodyl)] 5 mg tablet,delayed release (DR/EC) 5 mg PO ONCE Qty: 4 0RF Rx Instructions: take per colonoscopy instructions Discharge Instructions Instructions: Colon polyps, Diverticulosis Additional Instructions: Radha, was great seeing you today, and hope you feel well this afternoon. Everything went very smoothly. Your prep was excellent, negative everything fine. I did find to remove a single polyp today. It was quite small, and certainly nothing to worry about. This will be sent off to the pathologist, and once we know the nature of this polyp, my office will be in touch with recommendations for the timing of future colonoscopies. Incidentally, he also have just a little bit of diverticulosis. These are little weak spots in the muscular layer of the colon wall. This causes the inside lining to pocket her pouch outwards a bit. The pockets are called diverticula and the condition of having them is known as diverticulosis. Most patients that meet have these and are never bothered by them. Some patients experience pain, usually in the left lower part of their abdomen during flareups that we refer to as diverticulitis. I will attach some basic information here about typical approaches to diverti cular management. If you need anything, or have any questions at all, please do not hesitate to ask, otherwise we will be in touch once we have the polyp results. 1. If tolerated, consume a soft, low fiber diet for 1-2 days. 2[address] Do not drive, drink alcohol, operate machinery, make critical decisions, or do activities that require coordination or balance for 24 hours. 3. Because air was put into your colon during the procedure, expelling air from your rectum (passing gas or farting) is normal. 4. You may not have a bowel movement for 1-3 days because of the colonoscopy prep. This is normal. 5. Go directly to the emergency room if you notice any of the following: Develop chills (warm to touch), or if you have a thermometer and your temperature is above 101 Difficulty breathing or difficultly swallowing Persistent vomiting Severe abdominal pain, other than gas cramps Severe chest pain Black, tarry stools Any bleeding ? exceeding one tablespoon 6. Call your physician if the site where your intravenous was started becomes red, swollen, painful, and warm to touch. 7. Your physician has reviewed your pre-procedure medications. Please continue to take those medications as previously ordered. You will be given specific information/education regarding any changes to your medications before leaving. Stand Alone Forms: Anesthesia Discharge Inst., Christine Graf (DSU) Activity:: Activity as Tolerated Diet:: As Tolerated Discharge Orders Discharge Orders: Discharge Order (Routine); Ordered 09/21/24 Ordered By: Sumanth Hayward DS: Diagnosis Discharge Diagnosis (1) Encounter for screening colonoscopy: Status: Acute Asessment and Plan: Follow-up on polypectomy results
--- NOTE | 2024-09-21 09:38 | COLE_ITS ---
Date of service: 09/22/24 Time of Service: :25 Colonoscopy Report Date of procedure: 09/22/24 Pre-op diagnosis general: screening colonoscopy Post-op diagnosis procedure note: other (Colon polyp, diverticulosis) Procedure: colonoscopy with polypectomy Surgeon: Sumanth Hayward Anesthesia Type: General:No Airway Estimated blood loss (mL): 5 Pathology: other (0.25 cm flat polyp at 85 cm) Complications: None Disposition: same day Indications: Radha is a 64 year old woman who needs a screening colonoscopy Prep: Miralax/Dulcolax Procedure Start Time: :59 Procedure End Time: 10:15 Retraction Time: 10 Findings: Sigmoid diverticulosis, 0.25 cm flat polyp at 85 cm Procedure Description: After the induction of anesthesia, and with sharing in left lateral decubitus position, I began by performing an external anorectal exam.? Perineum and skin were normal, as was the anal verge.? This was normal.? Next, I performed a digital rectal exam.? I did not appreciate any abnormal findings.? Next, I advanced a colonoscope into the rectal vault.? I performed retroflexion.? This appeared normal.? Using insufflation, I then advanced the colonoscope beyond the rectal folds and into the sigmoid colon before advancing towards the cecum.? The quality of the prep was excellent.? The scope was noted to be in the cecum by identification of the ileocecal valve and appendiceal orifice.? I then began withdrawing the colonoscope using repeated irrigation as necessary for full evaluation of the colonic mucosa. Around 85 cm from the anal verge I identified a 0.25 cm polyp. ?It appeared flat in character. ?I was able to remove this with a cold forcep polypectomy. ?I examined the site, and there was minimal bleeding. ?Once this was completed, I continued to withdraw the scope and examine the remainder of the colonic mucosa.?Once the scope was withdrawn to the level of the rectum, great care was taken to examine portions of the rectal folds.? Finally, the scope was withdrawn and the patient was brought to the same-day surgery recovery unit as the anesthetic wore off. ?The findings and instructions were shared with the patient prior to discharge. [place] Bowel Prep [place] Bowel Prep Right Colon: 3 Left Colon: 3 Transverse Colon: 3 Total Score: 9
[2024-09-22 08:40] VITALS: BP 130/99; PULSE 70; RESP 16; TEMP 36.2; O2SAT 97
[2024-09-22] MEDS: Lactated Ringers 1,000 ML 80 ML IV (08:56)
--- NOTE | 2024-09-22 09:22 | ANES.PREOP_ITS ---
General Info Date of Service Date Performed: 09/22/24 Height: 5 ft 4 in Weight: 70.3 kg Body Mass Index (BMI): 26.6 Surgical Procedure: Operation Date: 09/22/24 09:50 Proposed Procedure Side Surgeon randy Hayward MD Meds Allergies and Home Medications Allergies Allergy/AdvReac Type Severity Reaction Status Date / Time hydromorphone (From Dilaudid) AdvReac Vomiting Verified 09/22/24 08:38 Home Medication ?Medication ?Instructions ?Recorded acetaminophen 325 mg tablet 650 mg PO Q4H PRN 06/17/13 calcium 500 mg (as 1 ea PO HS 10/01/13 carbonate)-vitamin D3 10 mcg (400 unit) tablet (Calcium 500 With D) multivitamin (Daily Multi-Vitamin 1 ea PO DAILY ##365 01/06/14 tablet) cholecalciferol (vitamin D3) 125 5,000 unit PO DAILY 09/25/18 mcg (5,000 unit) capsule bupropion HCl 150 mg 24 hr tablet, See Rx Instructions .Route 08/13/23 extended release .COMPLEX #90 tabs icosapent ethyl 1 gram capsule 2 g (2 x 1 gram) PO BID 90 days 02/25/24 (Vascepa) #360 caps rosuvastatin 10 mg tablet 10 mg PO DAILY 90 days #90 tabs 02/25/24 esomeprazole magnesium 40 mg 40 mg PO DAILY #60 caps 03/24/24 capsule,delayed release (Nexium) sucralfate 1 gram tablet (Carafate) 1 g PO .ac dinner PRN stomach 05/07/24 upset #90 tabs diphenhydramine 25 1 tab PO QHS PRN 09/11/24 mg-acetaminophen 500 mg tablet (Tylenol PM Extra Strength) Current Visit Medications: Current Medications Generic Name Dose Route Start Last Admin Trade Name Freq PRN Reason Stop Dose Admin Ringer's Solution 1,000 mls @ 80 mls/hr 09/22/24 06:00 09/22/24 08:56 IV 09/22/24 23:59 80 mls/hr INFUSION SANKET Administration IV Miscellaneous Supplies 1 each 09/22/24 06:00 Iv Access IV 09/22/24 23:59 DIRECTED SANKET Ondansetron HCl 4 mg 09/21/24 09:39 Ondansetron 4 Mg/2 Ml Vial IVP 10/21/24 09:38 Q4H PRN PRN Nausea / Vomiting Sodium Chloride 0 ml 09/22/24 06:00 Normal Saline Flush 10 Ml Syr IV 09/22/24 23:59 PRN PRN Sodium Chloride 0 ml 09/22/24 06:00 Normal Saline 10 Ml Vial IJ 09/22/24 23:59 DIRECTED PRN Sterile Water 0 ml 09/22/24 06:00 Water,Injection,Sterile 10 Ml Vial IJ 09/22/24 23:59 DIRECTED PRN PFSH Active Problems Active Problems: Problem Status Onset Code Encounter for screening colonoscopy Acute Z12.11 Gastritis determined by endoscopy Acute ~03/2024 K29.70 Duodenitis determined by biopsy Acute ~03/2024 K29.80 Orthostatic hypotension Acute I95.1 Emma type IIb hyperlipoproteinemia Acute E78.2 Microscopic hematuria Acute 03/27/12 R31.29 Abnormal computed tomography of abdomen and pelvis Acute ~10/2023 R93.5 Chronic kidney disease (CKD) Chronic N18.9 Pure hypercholesterolemia Chronic 03/27/12 E78.00 Depressive disorder Chronic 09/06/12 F32.9 Essential hypertension Chronic 03/27/12 I10 Impaired fasting glucose Chronic 08/04/14 R73.01 Irritable bowel Acute 08/04/14 K58.9 Medical History Medical History Pancreatitis (~08/2023) Benign skin lesion of nose Sessile colonic polyp (~2020) Tubulovillous adenoma (~2020) COVID (~12/2021) Complex tear of lateral meniscus of left knee (02/07/21) Tear of medial meniscus of left knee (02/07/21) Patellofemoral syndrome, left (02/07/21) Adenomatous colon polyp Arthralgia of hands, bilateral Plantar fasciitis of left foot Tremor Seasonal affective disorder (01/21/13) Surgical History Surgical History H/O esophagogastroduodenoscopy (~03/2024) [facility] Dr Griggs await biopsy results. 03/31/24-received fax copy of pt letter sent from Dr. Griggs; no abnorm alities seen of clinical significance. recommend f/u w/ pcp as needed S/P cholecystectomy (~2013) S/P appendectomy (~2012) [facility] [place] History of colonoscopy with polypectomy (~06/25/20) H/O reduction mammoplasty 02/15/18 bilateral breast reduction at [facility] [place] (Dr Glenn Dominguez) hysterectomy (04/16/95) Tubal Ligation, Laparoscopic EGD - IV Sedation (01/30/02) Tobacco Smoking/Tobacco Use Status: Never Passive smoking exposure: No Alcohol Alcohol Intake: former Substance Use Substance use: Never Substance use type: does not use Vital Signs and Lab Results Vital Signs Most Recent Vital Signs in EMR: Most Recent Vital Signs Temp Pulse Resp BP Pulse Ox 36.2 C L 70 16 130/99 H 97 09/22/24 08:40 09/22/24 08:40 09/22/24 08:40 09/22/24 08:40 09/22/24 08:40 Lab Results Blood Type / Crossmatch: No Data to Display Complete Blood Count: No Data to Display Complete Metabolic Panel: No Data to Display Liver Function Panel: No Data to Display Coagulation Panel: No Data to Display Cardiac Panel: No Data to Display Arterial Blood Gas: No Data to Display Venous Blood Gas: No Data to Display Pancreas Panel: No Data to Display Thyroid Panel: No Data to Display Infectious Disease: No Data to Display Blood Cultures: No Data to Display Toxicology Panel: No Data to Display Anesthesia Assessment and Plan Anesthesia History Personal History: No History of Anesthesia Complications Family History: No Family History of Anesthesia Complications Exercise Tolerance Exercise Tolerance: Metabolic Equivalents>4 Pertinent Negatives Pertinent Negatives: No Symptoms of GERD, No Major Cardiovascular Symptoms or Complaints and No Major Pulmonary Symptoms or Complaints Cardiac & Pulmonary Exam Cardiac Exam: Normal S1/S2 Heart Sounds Pulmonary Exam: Clear Bilateral Breath Sounds Implantable Cardiac Device Does patient have a Pacemaker or an ICD?: No Airway Exam Known Difficult Airway: No Mallampati Class: 1 Mouth Opening: Normal (> 3cm) Thyromental Distance: Greater than 3 cm Neck Range of Motion: Full ROM Neck Circumference: Normal Teeth Condition: Normal Dentition ASA Classification ASA Score: ASA 2 Emergency Case?: No NPO Status NPO Status: NPO Clears >2 hours, Solids >8 hours Anesthesia Plan Resuscitation Status: Full Code Anesthesia Technique: General Anesthesia Airway Planned: Natural Airway Monitors Used: Standard Monitors
[2024-09-22 09:24] VITALS: BMI 26.6
--- NOTE | 2024-09-22 10:10 | BOWEL_PTH ---
PATIENT: Radha Wilkins LOC: [facility] U#:[id number] AGE/SX: 64/F ROOM: RE09/22/[address]: Sumanth Hayward MD : 1960 BED: DIS: 09/22/2024 SPEC #: [id number] RECD: 09/22/24 13:08 STATUS: JOSEFINA REQ #: [id number] ESTRELLITA: 09/22/24 10:[address]: Sumanth Hayward DEPT: Surgical Specimen RECD BY: Lisa Vo ENTERED: 09/22/24 13:09 SP TYPE: Bowel OTHR DR: Cate Alvarez, ZACK Tissues: 1 - BIOPSY BOWEL Procedures: GROSS AND MICRO LEVEL 4 Comments: [id number]
[2024-09-22 10:20] VITALS: BP 109/86; PULSE 78; RESP 16; TEMP 36.6; O2SAT 95
--- NOTE | 2024-09-22 10:48 | W.ANESPOSTOP ---
Postoperative Evaluation Date, Time and Location Date Performed: 09/22/24 Time Performed: 10:35 Patient Location: Day Surgery Unit Vital Signs Most Recent Imported Vital Signs: Most Recent Vital Signs Temp Pulse Resp BP Pulse Ox 36.6 C 78 16 109/86 95 09/22/24 10:20 09/22/24 10:20 09/22/24 10:20 09/22/24 10:20 09/22/24 10:20 Pain Score Most Recent Pain Score: Most Recent Pain Score Pain Level 0 09/22/24 10:20 Assessment Mental Status: Awake (Alert & Oriented to Patient Baseline) Airway and Respiratory Function: Patent airway with normal (patient baseline) respiratory exam Cardiovascular Function: Hemodynamically Stable Hydration Status: Adequately Hydrated Nausea & Vomiting: No Nausea or Vomiting Pain: Pt. Denies Any Pain Peripheral Nerve Block: Patient did not receive a nerve block
[2024-09-22 10:54] VITALS: BP 102/74; PULSE 72; RESP 16; TEMP 36.4; O2SAT 96
== END 2024-09-22 10:59 | disposition home or self-care (01) ==
LOC: SUR 08:20
PROVIDERS: PCP Nurse Practitioner Adult Health; Visit Provider Surgery
PROC: 0DJD8ZZ Inspection of Lower Intestinal Tract, Via Natural or Artificial Opening Endoscopic (ICD-10-PCS; CPT 45378; principal; 2024-09-22 09:45)
DX: Z12.11 Encounter for screening for malignant neoplasm of colon (principal); K63.5 Polyp of colon; K57.30 Diverticulosis of large intestine without perforation or abscess without bleeding
CPT/HCPCS: 45380; 88305; J2003; J2405; J2704

== ENCOUNTER 2025-01-14 09:05 | Outpatient (CLI) | payer BC, MEDICARE, SELFPAY ==
[2025-01-19 16:55] LABS: Apolipoprotein B, Serum 86 mg/dL (48-124); Beta VLDL Cholesterol Not Detected mg/dL (<15); Beta VLDL Triglycerides Not Detected mg/dL (<15); Cholesterol, Total, CDC 176 mg/dL; Chylomicron Cholesterol Not Detected; Chylomicron Triglycerides Not Detected; HDL Cholesterol, CDC 48 mg/dL (>=50); LpX Not detected; Triglycerides, CDC 197 mg/dL; VLDL Triglycerides 132 mg/dL (<120)
== END 2025-01-14 09:06 | disposition home or self-care (01) ==
LOC: LBO 09:05
PROVIDERS: PCP Nurse Practitioner Adult Health; Visit Provider Nurse Practitioner Adult Health
DX: E78.2 Mixed hyperlipidemia (principal)
CPT/HCPCS: 36415; 80061; 82172; 82664

== ENCOUNTER → 2025-03-23 00:39 | Outpatient (CLI) | payer BC, MEDICARE, SELFPAY ==
--- NOTE | 2025-03-23 06:30 | DI.MRI_ITS ---
Exam(s) MR BRAIN WO EXAM: MR BRAIN WO CLINICAL HISTORY: ? acute abnormality,DIZZINESS ON STANDING, R42 TECHNIQUE: Multiplanar multisequence MRI of the brain was performed. COMPARISON: No exams were available for comparison FINDINGS: VENTRICLES AND EXTRA AXIAL SPACES: Normal in size and morphology for the patient's age. MIDLINE SHIFT: None. CEREBRAL PARENCHYMA: No focus of restricted diffusion to suggest acute infarct. No space-occupying lesion identified. Mild atrophy consistent with the patient's age. Moderate scattered foci of high signal in the white matter consistent with sequela of chronic microvascular disease. BRAINSTEM/CEREBELLUM: Normal. VISUALIZED PARANASAL SINUSES: Clear. MASTOIDS:Minimal fluid inferiorly. Vasculature: Normal flow void. PITUITARY GLAND: Unremarkable. ORBITS: Unremarkable. IMPRESSION: Moderate scattered white matter foci likely reflecting chronic microvascular changes. DATA REPOSITORY:
== END ==
LOC: DI 00:39
PROVIDERS: PCP Nurse Practitioner Adult Health; Visit Provider Nurse Practitioner Adult Health
DX: R42 Dizziness and giddiness (principal); R93.0 Abnormal findings on diagnostic imaging of skull and head, not elsewhere classified
CPT/HCPCS: 70551